=== PATIENT | male | born 1945 | race Caucasian/White ===

== ENCOUNTER 2017-12-23 10:06 | Outpatient (CLI) | payer MEDICARE ==
[~2017-12-23] VITALS: Ht 177.8 cm; Wt 87.7 kg
--- NOTE | ~2017-12-23 | OP ---
PATIENT NAME: HALEY ALBERTO MEDICAL RECORD: [id number] :47 LOCATION:D.CAT ADMISSION DATE: SURGEON: GAB SALGUERO MD DATE OF OPERATION: 12/23/2017 Transesophageal Note After general sedation via TIVA anesthesia, transesophageal Omniplane probe placed in the distal esophagus and proximal stomach without difficulty. FINDINGS: LVH is present. LV internal dimension is normal. Wall motion normal. EF is greater than 55%. The aortic valve is sclerotic; however, good valve excursion. No significant AI. Left atrium is mildly dilated. Mitral valve shows a probable ruptured chordae prolapsing into the left atrium with moderate to severe MR in an eccentric jet. Right-sided chamber size is grossly normal. Mild TR by color flow imaging. TRANSINT:[id number] Voice Confirmation ID: [id number] DOCUMENT ID: [id number] GAB SALGUERO MD at 1359 CC: [id number] DICTATION DATE: 12/23/17 1403 SENIOR SQL SERVER DEVELOPER: 12/23/17 1413 DEP CLI 12/23/17 [facility] [address] [place] [address]
--- NOTE | ~2017-12-23 | HEMODYNAMI ---
PATIENT:HALEY ALBERTO MEDICAL RECORD: [id number] : 47 LOCATION:[facility] ADMISSION DATE: 12/23/17 Generatedon:12/23/201713:56 Patient name: HALEY ALBERTO Patient #: [id number] : 1945 Date of study: 12/23/2017 Page: Of Hemodynamic Procedure Report Patient Data Patient Demographics Procedure consent was obtained First Name: HALEY Gender: Male Last Name: DOLLY : 1945 Middle Initial: R Age: 72 year(s) Patient #: [id number] Race: Ethnicity: or SSN: [id number] Additional ID: [id number] Contact details Address: [place] [address] State: [place] City: [place] Zip code: [address] Admission Admission Data Admission Date: 12/23/2017 Admission Time: 10:06 Arrival Date: 12/23/2017 Arrival Time: 13:00 Admit Source: Other Insurance Payor: Medicare Weight (lbs.): 205 Weight (kg.): 92.99 Procedure Procedure Types Cath Procedure Diagnostic Procedure LHC LHC w/Coronaries EMI Sedation Charges Moderate Sedation up to 30 minutes Procedure Description Procedure Date Procedure Date: 12/23/2017 Procedure Start Time: 13:44 Procedure End Time: 13:55 Procedure Staff Name Function Yves Mancilla MD Performing Physician Maxine Dejesus RT Monitor Dillon Schilling RN Nurse Geovanna Johansen RT Sdub Noe White MD Additional personnel Shaji Sweet Manager Corporate Responsibility Procedure Data Cath Procedure Fluoroscopy Diagnostic fluoroscopy Total fluoroscopy Time: 3.4 time: 3.4 min min Diagnostic fluoroscopy Total fluoroscopy dose: 145 dose: 145 mGy mGy Contrast Material Contrast Material Type Amount (ml) Isovue 300 44 Entry Location Entry Primary Successful Side Size Upsize Upsize Entry Closure Maldonado ccessful Closure Location (Fr) 1 (Fr) 2 (Fr) Remarks Device Remarks Radial Right 6 Fr Mechanical artery Short Compression Estimated blood loss: 5 ml Diagnostic catheters Device Type Used For End Catheter Placement DIAGNOSTIC [place] 110cm 5 Multi-vessel Fr catheter ([id number]) Angiography DIAGNOSTIC Pigtail 5Fr LV Angiography catheter ([id number]) Procedure Complications No complications Procedure Medications Medication Administration Route Dosage Oxygen etCO2 Nasal cannula 6 l/min Heparin Flush Bag added to field 2 bags (1000units/500ml NS) 0.9% NaCl I.V. 100 ml/hr Radial Cocktail added to field 1 syringe (Verapomil 2mg/Nitro 400mcg/Heparin 1500units) Refer to Anesthesia Notes for Sedation Medications Fentanyl I.V. 50 mcg Versed I.V. 1 mg Fentanyl I.V. 50 mcg Versed I.V. 1 mg Radial Cocktail I.A. 1 syringe (Verapomil 2mg/Nitro 400mcg/Heparin 1500units) Fentanyl I.V. 50 mcg Fentanyl I.V. 50 mcg Hemodynamics Rest Heart Rate: 72 (bpm) Pressure Samples Time Site Value (mmHg) Purpose Heart Use Rate(bpm) 13:52 LV 120/19,10 Snapshot 66 Gradients Valve Time Site Site Mean SEP/DFP Peak To Heart Use 1 2 (mmHg) (sec/min) Peak Rate (mmHg) (bpm) Aortic 13:53 LV AO 56 Snapshots Pre Cath Intra NCS Post Cath Vital Signs Time Heart Resp SPO2 etCO2 NIBP (mmHg) Rhythm Pain Sedation Rate (ipm) (%) (mmHg) Status Level (bpm) 13:15:30 63 17 100 32 162/74(105) NSR 0 (11) 10(A) , No pain 13:19:54 61 16 100 12 149/77(115) NSR 0 (11) 10(A) , No pain 13:29:23 54 17 100 27 130/92(107) NSR 0 (11) 9(A) , No pain 13:34:22 54 16 100 32.3 144/75(101) NSR 0 (11) 9(A) , No pain 13:45:14 50 16 100 31.5 135/60(97) NSR 0 (11) 9(A) , No pain 13:49:58 62 17 98 35.3 136/69(99) NSR 0 (11) 9(A) , No pain 13:54:00 59 16 98 36 127/73(96) NSR 0 (11) 9(A) , No pain Medications Time Medication Route Dose Verified Delivered Reason Notes Effectiveness by by 13:15:58 Oxygen etCO2 6 l/min Yves Carranza Nasal St Apollo Schilling RN cannula 13:16:09 Heparin Flush added 2 bags Yves Carranza used for Bag to St Apollo Schilling RN procedure (1000units/500ml field MORA NS) 13:16:21 0.9% NaCl I.V. 100 Yves Carranza Per ml/hr St Apollo Schilling RN physician 13:16:30 Radial Cocktail added 1 Yves Carranza used for (Verapomil to syringe St Apollo Schilling healthcare administrative assistant 2mg/Nitro field MORA 400mcg/Heparin 1500units) 13:16:39 Refer to Yves Carranza Per Anesthesia Notes St Apollo Schilling RN physician for Sedation MD Medications 13:44:16 Fentanyl I.V. 50 mcg Yves Carranza for sedation St Apollo Schilling RN, MD 13:44:25 Versed I.V. 1 mg Yves Carranza for sedation St Apollo Schilling RN, MD 13:46:52 Fentanyl I.V. 50 mcg Yves Carranza for sedation St Apollo Schilling RN, MD 13:46:57 Versed I.V. 1 mg Yves Carranza for sedation St Apollo Schilling RN, MD 13:47:05 Radial Cocktail I.A. 1 Yves Marinelli for (Verapomil syringe Ailey Laurent vasodilation 2mg/Nitro MD MORA 400mcg/Heparin 1500units) 13:49:01 Fentanyl I.V. 50 mcg Yves Carranza for sedation St Apollo Schilling RN, MD 13:51:21 Fentanyl I.V. 50 mcg Yves Carranza for sedation St Apollo Schilling RN, MD Procedure Log Time Note 12:43:51 Geovanna Johansen RT(R) sent for patient. Start room use. 12:53:19 Informed consent obtained and on chart 12:53:23 Diagnostic Cath Status : Elective 12:53:53 Time tracking: Regular hours (M-F 7:00 - 5:00) 12:53:57 Plan of Care:Hemodynamics will remain stable., Cardiac rhythm will remain stable., Comfort level will be maintained., Respiratory function will remain adequate., Patient/ family verbilizes understanding of procedure., Procedure tolerated without complication., Recovers from procedure without complications.. 12:54:34 Admit Source: Other 12:55:08 Patient Weight : 205 lbs 12:55:09 Arrival Date: 12/23/2017 1:00:00 PM 12:55:18 Insurance Payor : Medicare 12:59:56 Noe White MD present and monitoring patient for TIVA. 13:00:11 Shaji Sweet Tar Kettle Runner present for EMI. 13:00:20 Patient received from Pre/Post Procedure Room to CCL 3 Alert and oriented. Tansferred to table in Supine position. 13:00:21 Warm blankets applied, and king hugger turned on for patient comfort. 13:00:21 Correct patient and procedure confirmed by team. 13:00:22 ECG and BP/O2 sat monitors applied to patient. 13:04:52 Vital chart was started 13:04:53 Baseline sample Acquired. 13:04:58 Rhythm: sinus rhythm 13:05:02 Full Disclosure recording started 13:05:05 H&P Date Dictated: 12/23/2017 Within 30 days and on chart., H&P Addendum completed by physician on day of procedure. (MUST COMPLETE FOR ALL OUTPATIENTS). 13:05:07 Pre-procedure instructions explained to patient. 13:05:07 Pre-op teaching completed and patient verbalized understanding. 13:05:10 Family in waiting room. 13:05:11 Patient NPO since Midnight. 13:05:13 Is the patient allergic to Iodine/contrast media? No. 13:05:13 Was the patient premedicated? No 13:05:39 Is patient on blood thinner?No 13:05:40 Patient diabetic? No. 13:05:45 Previous problem with sedation/anesthesia? No ? 13:05:46 Snore? Yes 13:05:47 Sleep apnea? No 13:05:48 Deviated septum? No 13:05:49 Opens mouth fully? Yes 13:05:49 Sticks out tongue? Yes 13:05:51 Airway obstruction? No ? 13:05:54 Dentures? No ? 13:06:00 Pre procedure: right dorsailis pedis pulse 2+ Normal; easily identifiable; not easily obliterated 13:06:02 Pre procedure: left dorsailis pedis pulse 2+ Normal; easily identifiable; not easily obliterated 13:06:04 Patient pain scale 0/10 ?. 13:06:10 IV patent on arrival in left forearm with 0.9% NaCl at [facility]. 13:07:25 Baseline sample Acquired. 13:07:46 Baseline sample Acquired. 13:09:32 Lab results completed and on chart. 13:09:50 Right Radial & Right Groin area was prepped with chlora-prep and draped in sterile fashion 13:09:51 Alarms reviewed by R. N. 13:09:51 Sharps counted by scrub and verified by R.N. 13:11:11 Physician arrived 13::13 --------ALL STOP TIME OUT------ 13:11:14 Final Timeout: patient, procedure, and site verified with staff and physician. All members of the team are in agreement. 13:11:20 Right Radial & Right Groin site verified by team. 13:11:25 Physical assessment completed. ASA score P 2 - A patient with mild systemic disease as per Yves Mancilla MD. 13:11:35 Sedation plan: TIVA Medication:Versed, Fentanyl, Propofol 13:12:43 Procedure started. 13:14:16 EMI started. 13:15:58 Oxygen 6 l/min etCO2 Nasal cannula was administered by Dillon Schilling RN; ; 13:16:09 Heparin Flush Bag (1000units/500ml NS) 2 bags added to field was administered by Dillon Schilling RN; used for procedure; 13:16:21 0.9% NaCl 100 ml/hr I.V. was administered by Dlilon Schilling RN; Per physician; 13:16:30 Radial Cocktail (Verapomil 2mg/Nitro 400mcg/Heparin 1500units) 1 syringe added to field was administered by Dillon Schilling RN; used for procedure; 13:16:39 Refer to Anesthesia Notes for Sedation Medications was administered by Dillon Schilling RN; Per physician; 13:21:44 EMI completed. 13:22:51 Use device set Radial Dx or PCI 13:22:52 ACIST Syringe (57683) opened to sterile field. 13:22:53 Medline Cath Pack ([id number]) opened to sterile field. 13:22:53 Bag Decanter (2002) opened to sterile field. 13:22:54 DIAGNOSTIC WIRE .035 260cm J wire (804338) opened to sterile field. 13:22:55 ACIST Hand Control (71785) opened to sterile field. 13:22:55 ACIST Manifold (71479) opened to sterile field. 13:22:56 Tegaderm 4 x 4 (1626W) opened to sterile field. 13:22:57 MBrace Wrist Support ([id number]) opened to sterile field. 13:22:58 SHEATH 6Fr Prelude Radial ([id number]) opened to sterile field. 13:44:16 Fentanyl 50 mcg I.V. was administered by Dillon Schilling RN; for sedation; 13:44:25 Versed 1 mg I.V. was administered by Dillon Schilling RN; for sedation; 13:44:36 Local anesthetic to right radial artery with Lidocaine 2% by Yves Mancilla MD.INITIAL ACCESS ONLY 13:44:44 A 6 Fr Short sheath was inserted into the Right Radial artery 13:45:48 A DIAGNOSTIC [place] 110cm 5 Fr catheter (085039) was advanced over the wire and used for Multi-vessel Angiography. 13:46:52 Fentanyl 50 mcg I.V. was administered by Dillon Schilling RN; for sedation; 13:46:57 Versed 1 mg I.V. was administered by Dillon Schilling RN; for sedation; 13:47:05 Radial Cocktail (Verapomil 2mg/Nitro 400mcg/Heparin 1500units) 1 syringe I.A. was administered by Yves Mancilla MD; for vasodilation; 13:48:35 LCA angiography performed. 13:48:39 Injector settings: Ml/sec: 3, Volume: 6, 13:49:01 Fentanyl 50 mcg I.V. was administered by Dillon Schilling RN; for sedation; 13:49:20 RCA angiography performed. 13:49:26 Injector settings: Ml/sec: 3, Volume: 6, 13:50:07 Catheter removed. 13:50:20 A DIAGNOSTIC Pigtail 5Fr catheter ([id number]) was advanced over the wire and used for LV Angiography. 13:51:21 Fentanyl 50 mcg I.V. was administered by Dillon Schilling RN; for sedation; 13:52:46 LV hemodynamics recorded. 13:52:47 LV gram done using HERNANDEZ 13:52:50 Injector settings: Ml/sec: 5, Volume: 15, 13:53:50 EF : 55 % 13:53:57 Catheter removed. 13:53:59 TR BAND Standard ([id number]) opened to sterile field. 13:54:13 Sheath removed intact; hemostasis achieved with Mechanical Compression to the Right Radial artery. 13:54:22 Procedure ended.(Physican Out) 13:54:31 Fluoroscopy time 03.40 minutes. 13:54:37 Flurop Dose total: 145 13:54:37 Fluoroscopy dose: 145 mGy 13:54:41 Contrast amount:Isovue 300 44ml. 13:54:43 Sharps counted by scrub and verified by R.N. 13:54:45 TR band inflated with 10cc of air. 13:54:47 Insertion/operative site no bleeding no hematoma. 13:54:50 Post right radial artery:stable 13:54:52 Post Procedure Pulses reassessed and unchanged 13:54:54 Post procedure rhythm: unchanged. 13:54:57 Estimated blood loss: 5 ml 13:54:59 Post procedure instruction explained to patient.Patient verbalizes understanding. 13:54:59 Patient needs reinforcement of post procedure teaching. 13:55:27 Procedure type changed to Cath procedure, Diagnostic procedure, LHC, LHC w/Coronaries, EMI, Sedation Charges, Moderate Sedation up to 30 minutes 13:55:28 Procedure and supply charges have been captured, reviewed, submitted and are correct. 13:55:34 Procedure Complication : No complications 13:55:38 Vital chart was stopped 13:55:39 See physician's report for complete and final results. 13:55:41 Report given to Pre/Post Procedure Room. 13:55:43 Patient transfered to Pre/Post Procedure Room with Stretcher. 13:55:45 Procedure ended. 13:55:45 Full Disclosure recording stopped 13:55:55 End room use (Document Last) Device Usage Item Name Manufacture Quantity Catalog Number Hospital Part Current M inimal Lot# / Charge Number Stock Stock Serial# Code ACIST Syringe Acist 1 [id number] [id number] [id number] [id number] 2 0 (92749) Medical Systems Inc Medline Cath Cardinal 1 [id number] 143315 48669 459692 5 [employer] ([id number]) Bag Decanter Microtek 1 793416 78916 596616 5 () Medical Inc. DIAGNOSTIC WIRE St Flynn 1 382029 540898 895987 052783 3 0 .035 260cm J wire (468868) ACIST Hand Acist 1 25105 671324 342331 866569 5 Control (24696) Medical Systems Inc ACIST Manifold Acist 1 31197 784601 066406 845750 5 (79056) Medical Systems Inc Tegaderm 4 x 4 3M 1 1626W 233911 124394 125582 5 (1626W) MBrace Wrist Advanced 1 140-0250-00 721879 65377 019531 5 Support Vascular ([id number]) Dynamics SHEATH 6Fr Merit 1 [id number] 302886 196623 268536 5 Prelude Radial Medical ([id number]) DIAGNOSTIC Terumo 1 40-9391 127962 480741 626172 5 [place] 110cm 5 Fr catheter (121628) DIAGNOSTIC Cardinal 1 [id number] 557106 991725 042653 5 Pigtail 5Fr Health catheter ([id number]) TR BAND Terumo 1 [id number] 942733 246636 204970 4 0 Standard ([id number]) Signature Audit [place] Stage Time Signature Unsigned Intra-Procedure 12/23/2017 Maxine Dejesus 1:56:53 PM RT(R) Signatures Monitor : Maxine Dejesus RT Signature : Date : Time : [id number] [place] [address]
--- NOTE | ~2017-12-23 | OP ---
PATIENT NAME: HALEY ALBERTO MEDICAL RECORD: [id number] :47 LOCATION:D.CAT ADMISSION DATE: SURGEON: GAB SALGUERO MD DATE OF OPERATION: 12/23/2017 PROCEDURE: Left heart catheterization, selective coronary angiography, right radial approach. CATHETERS: [place] catheter, radial sheath. The procedure was well tolerated. The patient was returned to phillips, sheath removed and a TR band placed. FINDINGS: Left ventriculography in 30-degree HERNANDEZ view: LV appears to be normal, wall motion normal. EF 50% to 55%. There is 2 to 3+ mitral regurgitation. CORONARY ANATOMY: LEFT MAIN: Left main is free of disease. LAD: Shows mild wall disease with no flow obstructive stenosis. CIRCUMFLEX: Multivessel, free of disease. RIGHT CORONARY ARTERY: Free of disease. IMPRESSION: A 2 to 3+ mitral regurgitation with ruptured chordae via transesophageal dictated previously. We referred to CV surgery for mitral valve repair. TRANSINT:[id number] Voice Confirmation ID: [id number] DOCUMENT ID: [id number] GAB SALGUERO MD at 1359 CC: [id number] DICTATION DATE: 12/23/17 1405 SLIDE ATTENDANT: 12/23/17 1415 DEP CLI 12/23/17 [facility] [address] [place] [address]
[2017-12-23] MEDS ORDERED: PRAVASTATIN SOD10 MG PO (10:34)
[2017-12-23] MEDS ORDERED: DIOVAN HCT 80-11 TAB PO (10:34)
[2017-12-23] MEDS ORDERED: HYDROCODONE-APA1 TAB PO (10:35)
[2017-12-23] MEDS ORDERED: ZOLOFT50 MG PO (10:36)
[2017-12-23] MEDS ORDERED: XANAX1 MG PO (10:36)
[2017-12-23] MEDS ORDERED: OMEPRAZOLE40 MG PO (10:36)
[2017-12-23] MEDS ORDERED: REGLAN5 MG PO (10:37)
[2017-12-23 10:47] VITALS: BP 160/72; BMI 27.7
[2017-12-23 11:00] LABS: BASOPHILS 0.6 % (0-2); EOSINOPHILS 2.1 % (0-7); HEMATOCRIT 40.4 % (42.0-54.0); HEMOGLOBIN 13.6 g/dL (13.5-17.5); IMMATURE GRANULOCYTES 0.2 % (0-5); LYMPHOCYTES 26.7 % (15-50); MCH 29.2 pg (26.0-34.0); MCHC 33.7 g/dL (31.0-37.0); MCV 86.9 fL (80.0-100.0); MEAN PLATELET VOLUME 8.7 fL (7.4-10.4); MONOCYTES 9.4 % (2-11); PLATELET COUNT 197 10x3/uL (130-400); RBC 4.65 10x6/uL (4.20-6.10); RDW 14.2 % (11.5-14.5)
[2017-12-23 11:08] LABS: ANION GAP 12.2 mmol/L (8-16); CALCIUM 9.1 mg/dL (8.5-10.1); CREATININE - SERUM 1.3 mg/dL (0.6-1.3); POTASSIUM - SERUM 4.2 mmol/L (3.5-5.1)
[2017-12-24 16:25] VITALS: Ht 177.8 cm; Wt 87.7 kg
== END 2017-12-23 16:20 | disposition home or self-care (01) ==
LOC: D.CATH 10:06
PROVIDERS: Internal Medicine Cardiovascular Disease
DX: I51.7 Cardiomegaly (principal); I70.0 Atherosclerosis of aorta; I34.1 Nonrheumatic mitral (valve) prolapse; I34.0 Nonrheumatic mitral (valve) insufficiency; I07.1 Rheumatic tricuspid insufficiency; Z01.812 Encounter for preprocedural laboratory examination

== ENCOUNTER 2017-12-30 05:00 | Inpatient (IN) | payer MEDICARE ==
[2017-12-25 13:37] LABS: BASOPHILS 0.5 % (0-2); EOSINOPHILS 1.8 % (0-7); HEMATOCRIT 38.9 % (42.0-54.0); IMMATURE GRANULOCYTES 0.2 % (0-5); LYMPHOCYTES 26.8 % (15-50); MCH 29.1 pg (26.0-34.0); MCHC 33.4 g/dL (31.0-37.0); MEAN PLATELET VOLUME 8.7 fL (7.4-10.4); NEUTROPHILS 60.7 % (40-80); PLATELET COUNT 202 10x3/uL (130-400); RBC 4.47 10x6/uL (4.20-6.10); RDW 14.2 % (11.5-14.5); WBC 6.5 10x3/uL (4.8-10.8)
[2017-12-25 13:44] LABS: APPEARANCE CLEAR (CLEAR); BACTERIA FEW /hpf (NONE SEEN); BILIRUBIN NEGATIVE (NEGATIVE); COLOR YELLOW (YELLOW); EPITHELIAL CELLS OCC /hpf (0-5); GLUCOSE NEGATIVE (NEGATIVE); KETONE NEGATIVE (NEGATIVE); MUCUS <1+ /lpf (NONE SEEN); NITRITE NEGATIVE (NEGATIVE); PROTEIN NEGATIVE (NEGATIVE); RED CELLS - URINE 0-5 /hpf (0-5); SPECIFIC GRAVITY 1.025 (1.005-1.020); UROBILINOGEN NORMAL (NORMAL); WHITE CELLS - URINE RARE /hpf (0-5)
[2017-12-25 14:00] LABS: INR 1.03 (0.85-1.17); PROTIME 13.1 SECONDS (11.6-15.0)
[2017-12-25 14:01] LABS: APTT 31.7 SECONDS (22.8-39.4)
[2017-12-25 14:13] LABS: ALBUMIN 3.9 g/dL (3.4-5.0); ANION GAP 12.1 mmol/L (8-16); BILIRUBIN - TOTAL 0.42 mg/dL (0.2-1.3); CALCIUM 9.1 mg/dL (8.5-10.1); CARBON DIOXIDE 29.6 mmol/L (21.0-32.0); CREATININE - SERUM 1.2 mg/dL (0.6-1.3); PHOSPHOROUS 4.1 mg/dL (2.5-4.9); POTASSIUM - SERUM 3.7 mmol/L (3.5-5.1); PROTEIN - SERUM 7.6 g/dL (6.4-8.2); T4 THYROXIN - FREE 0.73 ng/dL (0.76-1.46); THYROID STIMULATING HORMONE 2.08 uIU/mL (0.36-3.74); URIC ACID 5.5 mg/dL (2.6-7.2)
[2017-12-30] VITALS (46 sets, daily range): BP systolic 97–158; BP diastolic 51–75; BMI 27.3
[~2017-12-30] VITALS: Ht 177.8 cm; Wt 85.9 kg
--- NOTE | ~2017-12-30 | OP ---
PATIENT NAME: HALEY ALBERTO MEDICAL RECORD: [id number] :47 LOCATION:D.[facility] D.CV04 ADMISSION DATE:12/30/17 SURGEON: AVERY SINGH MD DATE OF OPERATION: 12/30/2017 SURGEON: Avery Singh MD FRETTED INSTRUMENTS INSPECTOR: LYLE Hardin OPERATIONS PERFORMED: 1. Mitral valve repair with quadrangular resection of central scallop posterior leaflet and localized annuloplasty. 2. Insertion of St. Flynn 32-mm annuloplasty ring. 3. Coronary artery bypass graft times one (reverse saphenous vein graft from aorta to diagonal vessel). PREOPERATIVE DIAGNOSES: Mitral regurgitation with ruptured chordae and coronary artery disease. POSTOPERATIVE DIAGNOSES: Mitral regurgitation with ruptured chordae and coronary artery disease. ANESTHESIA: General endotracheal anesthesia. ESTIMATED BLOOD LOSS: Total cardiopulmonary bypass with Cell Saver retransfusion. SPECIMENS: Central scallop posterior mitral valve. COMPLICATIONS: None. CONDITION: Stable. DISPOSITION: ICU. OPERATIVE FINDINGS: 1. Transesophageal echocardiography was a moderately difficult window, but visualization of the mitral valve confirmed the previous findings of ruptured chordae from the central portion of the posterior leaflet with mitral regurgitation, not as severe appearing under general anesthesia even with systolic pressure of 120. Good ventricular contractility. No tricuspid regurgitation noted and normal aortic valve. 2. There was significant calcification involving the left anterior descending and the diagonal. The diagonal was a 1.5-mm vessel with posterior plaque, moderate disease. 3. Ruptured primary cord from the free edge of the central scallop of the posterior leaflet, excised in a quadrangular fashion with localized pledgeted annuloplasty of the posterior portion of the mitral valve annulus and reapproximation of the posterior mitral valve leaflets. 4. A 32-mm St. Flynn annuloplasty ring resulting in very mild mitral regurgitation intraoperatively. 5. Separation from cardiopulmonary bypass with no vasopressors. Transesophageal echocardiography confirmed no mitral regurgitation and no mitral stenosis. OPERATIVE REPORT [id number] HALEY ALBERTO OPERATIVE INDICATION: Mitral regurgitation with ruptured chordae. OPERATIVE SUMMARY IN DETAIL: The patient was brought to the operating suite. General anesthesia was obtained. The patient was prepped and draped. Later, the [place] was able to be floated with the chest open. A portion of greater saphenous vein starting at the ankle and extending up to the mid calf was removed. Side branch was clipped. Vessel removed proximally and distally and ligated. The leg was later closed in 2 layers. Median sternotomy incision was made. Subcutaneous tissue was divided by electrocautery. Sternum was divided with a saw. Pericardium was opened. Heparin was given. The patient was cannulated with bicaval cannulation. The patient was placed on cardiopulmonary bypass. Site for distal anastomosis was selected. The patient was cooled. Antegrade cardioplegia vent was placed. Retrograde cardioplegia cannula was placed. Crossclamp was placed. Cardioplegia given antegrade and retrograde and this was repeated at 15- to 20-minute intervals during the crossclamp time. Distal anastomoses were performed in standard technique. Atriotomy was performed after dissecting the interatrial groove. The valve was visualized with findings as noted above. Quadrangular resection was successful. Valve leaflets were carefully reapproximated. The annuloplasty ring was sutured in with interrupted annular sutures and carefully lowered into place. The valve was checked. The patient was rewarmed. Atriotomy was closed. Single proximal anastomosis was performed. Left ventricular apex was de-aired. Crossclamp was removed. The patient resumed spontaneous rhythm. Atrial and ventricular pacing wires were placed. Once the patient was fully rewarmed, the patient was weaned off cardiopulmonary bypass and was stable. The patient was decannulated. Cannula sites were oversewn. Protamine was given. Graft lay appropriately. Hemostasis was ensured. Drains were placed in the mediastinum. Pericardial valve was loosely reapproximated. Sternum was closed with wires. Fascia was closed. Subcutaneous tissue was closed. Skin was closed. Dermabond was placed. Needle and sponge counts were reported as correct and the patient was taken to the ICU in stable condition. TRANSINT:[id number] Voice Confirmation ID: [id number] DOCUMENT ID: [id number] AVERY SINGH MD at 0751 CC: PRETTY SILVA M.D. [id number] DICTATION DATE: 12/30/171754 INFORMATION SECURITY ENGINEER: 12/30/17 1858 ADM IN [address] [place] [address]
--- NOTE | ~2017-12-30 | TEE ---
PATIENT:HALEY ALBERTO MEDICAL RECORD: [id number] LOCATION:[place] [address] AGE OF PATIENT: 72 ADMISSION DATE: 12/30/17 SEX: M REFERRING PHYSICIAN: INTERPRETING PHYSICIAN: SHAQUILLE STEWART MD TRANSESOPHAGEAL ECHOCARDIOGRAM Date: 12/30/17 EMI CHARGE Y INDICATIONS: CABG/MVR (REPAIR) PREMEDICATIONS: PATIENT'S RESPONSE PROCEDURE DOPPLER MEASUREMENTS: LVIT LA PA RA LVOT RVOT Asc. Ao AV Gradient Peak AV Mean AV Area MV Gradient Peak MV Mean MV Area INTERPRETATION: LVd: 4.0 cm LVs: 2.5 cm Doppler: 2-D: COLOR FLOW DOPPLER NORMAL SALINE STUDY: MISCELLANOUS: DIAGNOSIS: PLAN: Electricity Trading Analyst:Jaden [place] Auditor: Kim EMMANUEL COMMENTS: DATE OF SERVICE: PROCEDURE: Transesophageal echo evaluation of valvular structures during bypass surgery and mitral valve repair. FINDINGS: 1. Left ventricular chamber size is within normal limits. Left ventricular systolic function is normal. Overall ejection fraction estimated at 55%. 2. Left atrium, right atrium, and right ventricle chamber sizes are within TRANSESOPHAGEAL ECHOCARDIOGRAM REPORT [id number] HALEY ALBERTO normal limits. 3. Valvular structures have normal structure and motion. 4. Doppler interrogation reveals moderate to severe mitral regurgitation. This is not a new finding. The patient is scheduled for mitral valve repair. The remaining valvular structures have normal structure and motion and no other valvular insufficiency or stenosis is present. 5. No evidence of pericardial effusion or left ventricular thrombus. TRANSINT:[id number] Voice Confirmation ID: [id number] DOCUMENT ID: [id number] at 0847 CC: [id number] DICTATION DATE: 12/31/17 1251 STUDENT SUCCESS ADVISOR: 12/31/17 1259 ADM IN [address] [place] [address]
--- NOTE | ~2017-12-30 | CN ---
PATIENT NAME:HALEY ALBERTO MEDICAL RECORD: [id number] : 47 LOCATION:[facility] ADMIT DATE: 12/30/17 ACCOUNT: [id number] CONSULTING PHYSICIAN: SHAQUILLE STEWART MD REFERRING PHYSICIAN: CHAVA SINGH MD DATE OF CONSULTATION: 01/01/2018 ADMITTING DIAGNOSES: 1. Symptomatic mitral regurgitation. 2. Status post mitral valve repair with ring annuloplasty and posterior leaflet resection. 3. Coronary artery disease. 4. Status post coronary bypass graft surgery, saphenous vein graft to LAD diagonal. 5. Hypertension. 6. Hyperlipidemia. HISTORY OF PRESENT ILLNESS: Mr. Alberto is postop day #2, doing well status post coronary bypass graft surgery times 1 and mitral valve repair for mitral regurgitation. He has remained in sinus rhythm in the 60s. His blood pressure has been in the 100-120 range systolic. PHYSICAL EXAMINATION: GENERAL APPEARANCE: Well-nourished, well-developed, appears stated age. Level of distress, comfortable. PSYCHIATRIC: Mental status, alert, normal affect. Orientation, oriented to time, place and person. EYES: Lids and conjunctiva, noninjected. No discharge, no pallor. ENT: Lips, teeth, gums, normal dentition. Oropharynx, no cyanosis, no pallor. NECK: Carotid arteries, bilateral normal upstroke, no bruits, no thrills. JUGULAR VEINS: No jugular venous pressure or distention. CERVICAL LYMPH NODES: Nontender, nonenlarged. THYROID: Not enlarged. Nontender. No nodules. LUNGS: Respiratory effort, unlabored. CHEST: Normal curvature. No thoracic deformity. No chest wall tenderness. Percussion, resonant. Auscultation, clear. No wheezes, no rales, no rhonchi. CARDIOVASCULAR: Precordial exam, nondisplaced. No heaves or pericardial thrills. Rate and rhythm, regular. Heart sounds, normal S1, normal S2. No S3, no gallop, no rub. Systolic murmur, not heard. Diastolic murmur, not heard. EXTREMITIES: No cyanosis, no edema. Peripheral pulses, full and equal in all extremities, except as noted. No bruits appreciated. ABDOMEN: Soft, nondistended. Normal aorta. No bruit. Nontender. No masses. Liver, nontender, no hepatomegaly. Spleen, nontender, no splenomegaly. MUSCULOSKELETAL: No joint tenderness. No joint swelling. No erythema. NEUROLOGICAL: Normal gait, normal strength, normal tone. SKIN: Warm and dry. OVERALL IMPRESSION: Stable cardiac postop day #2 from mitral valve repair as well as coronary bypass graft surgery. TRANSINT:[id number] Voice Confirmation ID: [id number] DOCUMENT ID: [id number] CONSULT REPORT [id number] HALEY ALBERTO JEFFREY MD at 1403 CC: [id number] DICTATION DATE: 01/01/18 1237 [employer]S PRO: 01/01/18 1248 DIS IN 01/07/18 [facility] [address] [place] [address]
[~2017-12-30 05:00] MED LIST: DIOVAN HCT 80-11 TAB PO; HYDROCODONE-APA1 TAB PO; OMEPRAZOLE40 MG PO; PRAVASTATIN SOD10 MG PO; REGLAN5 MG PO; XANAX1 MG PO; ZOLOFT50 MG PO
[2017-12-30 12:34] LABS: HEMATOCRIT 35.1 % (42.0-54.0); HEMOGLOBIN 11.6 g/dL (13.5-17.5); MCH 28.5 pg (26.0-34.0); MCV 86.2 fL (80.0-100.0); MEAN PLATELET VOLUME 8.4 fL (7.4-10.4); RBC 4.07 10x6/uL (4.20-6.10); RDW 14.2 % (11.5-14.5); WBC 13.1 10x3/uL (4.8-10.8)
[2017-12-30 12:45] LABS: CALC OSMOLALITY 293 mosm/kg (275-300); CALCIUM 7.5 mg/dL (8.5-10.1); CARBON DIOXIDE 24.5 mmol/L (21.0-32.0); CHLORIDE - SERUM 109 mmol/L (98-107); POTASSIUM - SERUM 4.9 mmol/L (3.5-5.1); SODIUM 145 mmol/L (136-145); UREA NITROGEN 17 mg/dL (7-18); eGFR NON AFRICAN AMERICAN 78 mL/min (90-120)
[2017-12-30 12:48] LABS: GLUCOSE 154 mg/dL (74-106)
[2017-12-30 12:57] LABS: APTT 31.7 SECONDS (22.8-39.4); INR 1.48 (0.85-1.17); PROTIME 17.4 SECONDS (11.6-15.0)
[2017-12-31] VITALS (44 sets, daily range): BP systolic 86–147; BP diastolic 40–58; Ht 177.8 cm; Wt 85.9 kg
[2017-12-31 05:54] LABS: HEMATOCRIT 32.3 % (42.0-54.0); HEMOGLOBIN 10.5 g/dL (13.5-17.5); MCH 28.2 pg (26.0-34.0); MCHC 32.5 g/dL (31.0-37.0); MCV 86.8 fL (80.0-100.0); MEAN PLATELET VOLUME 8.9 fL (7.4-10.4); RBC 3.72 10x6/uL (4.20-6.10); RDW 14.7 % (11.5-14.5); WBC 14.1 10x3/uL (4.8-10.8)
[2017-12-31 06:20] LABS: ALBUMIN 2.6 g/dL (3.4-5.0); BILIRUBIN - TOTAL 0.55 mg/dL (0.2-1.3); CALCIUM 7.8 mg/dL (8.5-10.1); CARBON DIOXIDE 25.4 mmol/L (21.0-32.0); POTASSIUM - SERUM 4.4 mmol/L (3.5-5.1)
[2017-12-31 06:21] LABS: CREATININE - SERUM 1.4 mg/dL (0.6-1.3)
[2018-01-01] VITALS (26 sets, daily range): BP systolic 95–125; BP diastolic 41–65
[2018-01-01 04:49] LABS: HEMATOCRIT 26.3 % (42.0-54.0); HEMOGLOBIN 8.6 g/dL (13.5-17.5); MCH 28.2 pg (26.0-34.0); MCHC 32.7 g/dL (31.0-37.0); MCV 86.2 fL (80.0-100.0); MEAN PLATELET VOLUME 8.9 fL (7.4-10.4); RBC 3.05 10x6/uL (4.20-6.10); RDW 14.7 % (11.5-14.5); WBC 12.2 10x3/uL (4.8-10.8)
[2018-01-01 05:25] LABS: ALBUMIN 2.4 g/dL (3.4-5.0); BILIRUBIN - TOTAL 0.5 mg/dL (0.2-1.3); CALCIUM 7.4 mg/dL (8.5-10.1); CARBON DIOXIDE 26.1 mmol/L (21.0-32.0); CREATININE - SERUM 1.1 mg/dL (0.6-1.3)
[2018-01-01 05:27] LABS: ANION GAP 10.6 mmol/L (8-16); POTASSIUM - SERUM 3.7 mmol/L (3.5-5.1)
[2018-01-02] VITALS (33 sets, daily range): BP systolic 103–148; BP diastolic 39–91
[2018-01-02 05:07] LABS: HEMATOCRIT 23.5 % (42.0-54.0); HEMOGLOBIN 7.8 g/dL (13.5-17.5); MCH 28.5 pg (26.0-34.0); MCHC 33.2 g/dL (31.0-37.0); MCV 85.8 fL (80.0-100.0); MEAN PLATELET VOLUME 9.4 fL (7.4-10.4); RBC 2.74 10x6/uL (4.20-6.10); RDW 14.8 % (11.5-14.5)
[2018-01-02 05:37] LABS: ALBUMIN 2.2 g/dL (3.4-5.0); ALKALINE PHOSPHATASE 31 U/L (46-116); ALT (SGPT) 12 U/L (10-68); BILIRUBIN - TOTAL 0.59 mg/dL (0.2-1.3); CALC OSMOLALITY 273 mosm/kg (275-300); CALCIUM 7.6 mg/dL (8.5-10.1); CARBON DIOXIDE 23.9 mmol/L (21.0-32.0); CHLORIDE - SERUM 102 mmol/L (98-107); GLUCOSE 100 mg/dL (74-106); POTASSIUM - SERUM 3.8 mmol/L (3.5-5.1); PROTEIN - SERUM 5.2 g/dL (6.4-8.2); SODIUM 136 mmol/L (136-145); UREA NITROGEN 18 mg/dL (7-18); eGFR NON AFRICAN AMERICAN 78 mL/min (90-120)
[2018-01-03] VITALS (30 sets, daily range): BP systolic 123–170; BP diastolic 51–74
[2018-01-03 05:09] LABS: HEMATOCRIT 23.9 % (42.0-54.0); HEMOGLOBIN 7.8 g/dL (13.5-17.5); MCH 28.2 pg (26.0-34.0); MCHC 32.6 g/dL (31.0-37.0); MCV 86.3 fL (80.0-100.0); MEAN PLATELET VOLUME 9.1 fL (7.4-10.4); RBC 2.77 10x6/uL (4.20-6.10); RDW 14.6 % (11.5-14.5); WBC 8.3 10x3/uL (4.8-10.8)
[2018-01-03 05:43] LABS: ALBUMIN 2.3 g/dL (3.4-5.0); ANION GAP 18.5 mmol/L (8-16); BILIRUBIN - TOTAL 0.68 mg/dL (0.2-1.3); CALCIUM 7.7 mg/dL (8.5-10.1); CARBON DIOXIDE 22.4 mmol/L (21.0-32.0); CREATININE - SERUM 1.1 mg/dL (0.6-1.3); POTASSIUM - SERUM 3.9 mmol/L (3.5-5.1); PROTEIN - SERUM 5.6 g/dL (6.4-8.2)
[2018-01-04] VITALS (45 sets, daily range): BP systolic 115–154; BP diastolic 55–77
[2018-01-04 06:06] LABS: HEMATOCRIT 27.4 % (42.0-54.0); HEMOGLOBIN 8.9 g/dL (13.5-17.5); MCH 27.7 pg (26.0-34.0); MCHC 32.5 g/dL (31.0-37.0); MCV 85.4 fL (80.0-100.0); MEAN PLATELET VOLUME 8.9 fL (7.4-10.4); RBC 3.21 10x6/uL (4.20-6.10); RDW 14.7 % (11.5-14.5); WBC 9.1 10x3/uL (4.8-10.8)
[2018-01-04 06:39] LABS: ALBUMIN 2.4 g/dL (3.4-5.0); ALKALINE PHOSPHATASE 44 U/L (46-116); CALC OSMOLALITY 268 mosm/kg (275-300); CALCIUM 7.8 mg/dL (8.5-10.1); CARBON DIOXIDE 22.1 mmol/L (21.0-32.0); CHLORIDE - SERUM 99 mmol/L (98-107); GLUCOSE 98 mg/dL (74-106); PROTEIN - SERUM 5.8 g/dL (6.4-8.2); SODIUM 134 mmol/L (136-145); UREA NITROGEN 16 mg/dL (7-18); eGFR NON AFRICAN AMERICAN 78 mL/min (90-120)
[2018-01-04 07:00] LABS: ALT (SGPT) 30 U/L (10-68)
[2018-01-05] VITALS (24 sets, daily range): BP systolic 93–129; BP diastolic 42–68
[2018-01-05 06:21] LABS: HEMATOCRIT 30.9 % (42.0-54.0); MCH 27.8 pg (26.0-34.0); MCHC 32.4 g/dL (31.0-37.0); MCV 85.8 fL (80.0-100.0); MEAN PLATELET VOLUME 8.8 fL (7.4-10.4); RBC 3.6 10x6/uL (4.20-6.10); RDW 14.9 % (11.5-14.5); WBC 9.9 10x3/uL (4.8-10.8)
[2018-01-05 06:51] LABS: ANION GAP 17.9 mmol/L (8-16); CALCIUM 8.3 mg/dL (8.5-10.1); CARBON DIOXIDE 21.5 mmol/L (21.0-32.0); CREATININE - SERUM 1.2 mg/dL (0.6-1.3); POTASSIUM - SERUM 4.4 mmol/L (3.5-5.1)
[2018-01-06] VITALS (24 sets, daily range): BP systolic 103–137; BP diastolic 49–84
[2018-01-06 06:21] LABS: HEMATOCRIT 31.6 % (42.0-54.0); HEMOGLOBIN 10.1 g/dL (13.5-17.5); MCH 27.5 pg (26.0-34.0); MCV 86.1 fL (80.0-100.0); MEAN PLATELET VOLUME 9.1 fL (7.4-10.4); RBC 3.67 10x6/uL (4.20-6.10); RDW 15.1 % (11.5-14.5)
[2018-01-06 06:33] LABS: ANION GAP 15.6 mmol/L (8-16); CALCIUM 8.4 mg/dL (8.5-10.1); CARBON DIOXIDE 22.7 mmol/L (21.0-32.0); CREATININE - SERUM 1.2 mg/dL (0.6-1.3); POTASSIUM - SERUM 4.3 mmol/L (3.5-5.1)
[2018-01-07] VITALS (15 sets, daily range): BP systolic 91–132; BP diastolic 48–97
[2018-01-07 06:21] LABS: HEMOGLOBIN 9.7 g/dL (13.5-17.5); MCH 27.7 pg (26.0-34.0); MCHC 32.3 g/dL (31.0-37.0); MCV 85.7 fL (80.0-100.0); MEAN PLATELET VOLUME 8.7 fL (7.4-10.4); RBC 3.5 10x6/uL (4.20-6.10); RDW 15.1 % (11.5-14.5); WBC 10.3 10x3/uL (4.8-10.8)
[2018-01-07 06:33] LABS: ANION GAP 17.5 mmol/L (8-16); CALCIUM 8.9 mg/dL (8.5-10.1); CREATININE - SERUM 1.2 mg/dL (0.6-1.3); POTASSIUM - SERUM 4.5 mmol/L (3.5-5.1)
[2018-01-07] MEDS ORDERED: ELIQUIS2.5 MG PO (13:54)
[2018-01-07] MEDS ORDERED: CORDARONE200 MG PO ×2 (13:54→14:02)
[2018-01-07] MEDS ORDERED: XANAX0.25 MG PO (13:55)
[2018-01-07] MEDS ORDERED: ACETAMINOPHEN500 M1 PO (13:55)
[2018-01-07] MEDS ORDERED: ASPIRIN81 MG PO (13:56)
[2018-01-07] MEDS ORDERED: LASIX40 MG PO (13:56)
[2018-01-07] MEDS ORDERED: K-DUR20 MEQ PO (13:57)
[2018-01-07] MEDS ORDERED: COLACE100 MG PO (13:57)
== END 2018-01-07 17:52 | DRG 219 ==
LOC: D.SDCHOLD 05:00 → D.CVICU 05:00 → D.SDCHOLD 07:30 → D.CVICU 12:15
PROVIDERS: Internal Medicine Cardiovascular Disease; Thoracic Surgery (Cardiothoracic Vascular Surgery)
PROC: 021009W Bypass Coronary Artery, One Artery from Aorta with Autologous Venous Tissue, Open Approach (ICD-10-PCS; 2017-12-30)
PROC: 02UG08Z Supplement Mitral Valve with Zooplastic Tissue, Open Approach (ICD-10-PCS; principal; 2017-12-30 07:30)
PROC: 02BG0ZZ Excision of Mitral Valve, Open Approach (ICD-10-PCS; 2017-12-30 07:30)
DX: I34.0 Nonrheumatic mitral (valve) insufficiency (principal); I51.1 Rupture of chordae tendineae, not elsewhere classified; F05 Delirium due to known physiological condition; D62 Acute posthemorrhagic anemia; J98.11 Atelectasis; G72.81 Critical illness myopathy; I25.10 Atherosclerotic heart disease of native coronary artery without angina pectoris; I48.0 Paroxysmal atrial fibrillation

== ENCOUNTER 2018-01-07 18:11 | Inpatient (IN) | payer MEDICARE ==
[~2018-01-07] VITALS: Ht 177.8 cm; Wt 78.9 kg
--- NOTE | ~2018-01-07 | RHP ---
PATIENT: HALEY ALBERTO MEDICAL RECORD: [id number] ACCOUNT: [id number] LOCATION:[id number] : 47 ADMISSION DATE: 01/07/18 REHABILITATION HISTORY AND PHYSICAL EXAMINATION POST ADMISSION PHYSICIAN EXAMINATION POST-ADMISSION PHYSICAL EXAMINATION AND HISTORY AND PHYSICAL DATE OF ADMISSION: 01/07/2018 ADMITTING DIAGNOSIS: Critical illness myopathy. HISTORY OF PRESENT ILLNESS: The patient is a gentleman, who presents secondary to critical illness myopathy. He is a 72-year-old gentleman with history of coronary artery disease and angioplasty with stent placement and hypertension. He began having symptomatic mitral regurg, was seen by the cardiovascular surgeon for the symptoms. [facility] and underwent coronary artery bypass grafting, saphenous vein graft to his left anterior diagonal. Mitral valve repair with ring annuloplasty and posterior leaflet resection on 12/30. He had some postop complications of increased distal weakness, proximal weakness with difficulty rising from bed to chair, dizziness and lightheadedness, acute postop blood loss anemia, paroxysmal atrial fib, left pleural effusion. He was completely independent with mobility and ADLs prior to this. He is currently set up with mod assist to his ADLs and mod assist to his mobility. He lives alone, but he has son and [id number]. They plan to move in with him during his recuperation. After this surgery and when he was discharged home, he is going to return home hopefully at his prior level of functioning. Comorbidities include paroxysmal atrial fib, left pleural effusion, left basilar atelectasis, acute mitral insufficiency, acute occlusive coronary artery disease, acute critical illness myopathy, delirium, symptomatic mitral regurg, left anterior diagonal saphenous vein graft, hypertension, and hyperlipidemia. PAST MEDICAL HISTORY: Significant for hypertension, coronary artery disease, acid reflux, anxiety, depression, hyperlipidemia. PAST SURGICAL HISTORY: Includes bilateral knees, angioplasty with stent placement. ALLERGIES: No known drug allergies. CURRENT MEDICATIONS: Include amiodarone 200 mg b.i.d., Lasix 40 mg daily, he is on a tapering dose. Aspirin 81 mg daily. He is on potassium 20 mEq b.i.d. He is on Protonix 40 mg b.i.d., Colace 100 mg b.i.d., Eliquis 2.5 mg b.i.d., Xanax 0.25 mg every 8 hours p.r.n., and Tylenol as needed. HABITS: No current alcohol or tobacco use. FAMILY HISTORY: Noncontributory. SOCIAL HISTORY: The patient hopes to return back home and get back to his prior level of functioning. REVIEW OF SYSTEMS: GENERAL: Does complain of some weakness. HISTORY AND PHYSICAL [id number] HALEY ALBERTO PSYCHIATRIC: Denies cold, cough, or congestion. CARDIOVASCULAR: Denies chest pain. PHYSICAL EXAMINATION: VITAL SIGNS: Stable, afebrile. GENERAL: A well-developed gentleman, in no acute distress, alert upon exam. HEENT: Normocephalic and atraumatic. Mucosa moist. NECK: Supple. No lymphadenopathy. LUNGS: Clear at this time, though he does have some decreased breath sounds in his left base. HEART: Has a regular rate and rhythm. ABDOMEN: Benign. EXTREMITIES: No clubbing, cyanosis, or edema. NEUROLOGIC: He seems intact. LABORATORY DATA: His white count is 8.7, H&H of 9.4 and 29.3, and platelet count 353. His sodium is 134, potassium 4.3, BUN and creatinine of 19 and 1.3, and blood sugar is noted to be 114. ASSESSMENT: This 72-year-old gentleman admitted to the rehab with a working diagnosis of critical illness myopathy. The patient has potential to make improvement. We will institute the following multidisciplinary therapies including, but not limited to physical, occupational, respiratory, speech, nutritional services, prosthetics and orthotics. Given his complex medical condition and risks for more complications, rehabilitation services cannot be provided at a low level of care such as a residential facility. PLAN: 1. Admit to [facility] for intensive inpatient therapy to include the following disciplines: A. Physical therapy to improve gait, all transfer skills and bed mobility to a modified independent level. B. Occupational therapy to improve activities of daily living to a modified independent level. C. Case management to assist with discharge planning and placement options. D. Nutrition to assist with nutritional needs. E. Rehabilitation nursing to assist in monitoring the patient's underlying medical conditions and to assist with any type of bowel or bladder management. 2. The patient's current medications and medical care will be continued. 3. The patient will be placed on standard fall precautions. 4. The patient's estimated length of stay is approximately 7-10 days. 5. We will discuss this patient during care team staff meeting this week and we will appreciate cardiovascular surgeon seeing this patient. TRANSINT:[id number] Voice Confirmation ID: [id number] DOCUMENT ID: [id number] LORI notes whether there has been none or any medical/functional change since admission: - No change since the PAS LORI attests patient continues to be appropriate for IRF: - Remains appropriate for the IRF HISTORY AND PHYSICAL [id number] HALEY ALBERTO SCOTT MD at 1405 CC: [id number] DICTATION DATE: 01/08/18 1151 COLOR TELEVISION CONSOLE MONITOR: 01/08/18 1225 ADM IN [facility] [address] [place] [place] [id number]
[~2018-01-07 18:11] MED LIST changes: +ACETAMINOPHEN500 M1 PO; +ASPIRIN81 MG PO; +COLACE100 MG PO; +CORDARONE200 MG PO; +ELIQUIS2.5 MG PO; +K-DUR20 MEQ PO; +LASIX40 MG PO; +XANAX0.25 MG PO
[2018-01-07 19:16] VITALS: BP 117/54
[2018-01-07 20:08] VITALS: BP 117/54; BMI 26.0
[2018-01-08 04:26] LABS: BASOPHILS 0.3 % (0-2); EOSINOPHILS 2.1 % (0-7); HEMATOCRIT 29.3 % (42.0-54.0); HEMOGLOBIN 9.4 g/dL (13.5-17.5); IMMATURE GRANULOCYTES 1.3 % (0-5); MCH 27.7 pg (26.0-34.0); MCHC 32.1 g/dL (31.0-37.0); MCV 86.4 fL (80.0-100.0); MEAN PLATELET VOLUME 8.7 fL (7.4-10.4); MONOCYTES 10.6 % (2-11); NEUTROPHILS 74.7 % (40-80); PLATELET COUNT 353 10x3/uL (130-400); RBC 3.39 10x6/uL (4.20-6.10); RDW 15.1 % (11.5-14.5); WBC 8.7 10x3/uL (4.8-10.8)
[2018-01-08 04:42] LABS: CALCIUM 8.6 mg/dL (8.5-10.1); CARBON DIOXIDE 24.3 mmol/L (21.0-32.0); CREATININE - SERUM 1.3 mg/dL (0.6-1.3); POTASSIUM - SERUM 4.3 mmol/L (3.5-5.1)
[2018-01-08 08:48] VITALS: BP 109/60
[2018-01-08 10:34] VITALS: Ht 177.8 cm; Wt 78.9 kg
[2018-01-08 19:00] VITALS: BP 116/55
[2018-01-09 06:09] LABS: MCH 27.5 pg (26.0-34.0); MCHC 32.1 g/dL (31.0-37.0); MCV 85.6 fL (80.0-100.0); MEAN PLATELET VOLUME 8.7 fL (7.4-10.4); RBC 3.27 10x6/uL (4.20-6.10); RDW 14.9 % (11.5-14.5); WBC 8.1 10x3/uL (4.8-10.8)
[2018-01-09 06:25] LABS: ANION GAP 15.8 mmol/L (8-16); CALCIUM 8.2 mg/dL (8.5-10.1); CARBON DIOXIDE 23.6 mmol/L (21.0-32.0); CREATININE - SERUM 1.4 mg/dL (0.6-1.3); POTASSIUM - SERUM 4.4 mmol/L (3.5-5.1)
[2018-01-09 08:19] VITALS: BP 116/63
[2018-01-09 20:32] VITALS: BP 113/58
[2018-01-10 08:00] VITALS: BP 110/57
[2018-01-10 20:20] VITALS: BP 107/55
[2018-01-11 05:44] LABS: BASOPHILS 0.3 % (0-2); EOSINOPHILS 2.6 % (0-7); HEMATOCRIT 29.9 % (42.0-54.0); HEMOGLOBIN 9.7 g/dL (13.5-17.5); IMMATURE GRANULOCYTES 0.8 % (0-5); LYMPHOCYTES 11.5 % (15-50); MCH 27.6 pg (26.0-34.0); MCHC 32.4 g/dL (31.0-37.0); MCV 85.2 fL (80.0-100.0); MEAN PLATELET VOLUME 8.5 fL (7.4-10.4); MONOCYTES 10.5 % (2-11); NEUTROPHILS 74.3 % (40-80); PLATELET COUNT 424 10x3/uL (130-400); RBC 3.51 10x6/uL (4.20-6.10); RDW 14.9 % (11.5-14.5); WBC 9.6 10x3/uL (4.8-10.8)
[2018-01-11 05:57] LABS: ANION GAP 15.4 mmol/L (8-16); CALCIUM 8.7 mg/dL (8.5-10.1); CARBON DIOXIDE 23.7 mmol/L (21.0-32.0); CREATININE - SERUM 1.4 mg/dL (0.6-1.3); POTASSIUM - SERUM 4.1 mmol/L (3.5-5.1)
[2018-01-11 08:34] VITALS: BP 111/62
[2018-01-11 19:00] VITALS: BP 121/60
[2018-01-12 06:27] LABS: BASOPHILS 0.3 % (0-2); EOSINOPHILS 2.3 % (0-7); HEMATOCRIT 33.6 % (42.0-54.0); HEMOGLOBIN 10.9 g/dL (13.5-17.5); IMMATURE GRANULOCYTES 0.9 % (0-5); LYMPHOCYTES 13.3 % (15-50); MCH 27.7 pg (26.0-34.0); MCHC 32.4 g/dL (31.0-37.0); MCV 85.3 fL (80.0-100.0); MEAN PLATELET VOLUME 8.5 fL (7.4-10.4); MONOCYTES 9.6 % (2-11); NEUTROPHILS 73.6 % (40-80); RBC 3.94 10x6/uL (4.20-6.10); RDW 14.9 % (11.5-14.5); WBC 11.9 10x3/uL (4.8-10.8)
[2018-01-12 06:28] LABS: PLATELET COUNT 523 10x3/uL (130-400)
[2018-01-12 06:55] LABS: ANION GAP 17.8 mmol/L (8-16); CALCIUM 8.9 mg/dL (8.5-10.1); CARBON DIOXIDE 23.1 mmol/L (21.0-32.0); CREATININE - SERUM 1.7 mg/dL (0.6-1.3); POTASSIUM - SERUM 3.9 mmol/L (3.5-5.1)
[2018-01-12 08:00] VITALS: BP 127/60
[2018-01-12 19:00] VITALS: BP 117/59
[2018-01-13 08:00] VITALS: BP 105/62
[2018-01-13 08:33] VITALS: BP 133/63
[2018-01-13 19:00] VITALS: BP 118/58
[2018-01-14 08:00] VITALS: BP 110/55
[2018-01-14 19:00] VITALS: BP 119/52
[2018-01-15 06:25] LABS: BASOPHILS 0.7 % (0-2); EOSINOPHILS 2.9 % (0-7); HEMATOCRIT 31.4 % (42.0-54.0); HEMOGLOBIN 9.9 g/dL (13.5-17.5); IMMATURE GRANULOCYTES 0.7 % (0-5); LYMPHOCYTES 16.5 % (15-50); MCH 27.2 pg (26.0-34.0); MCHC 31.5 g/dL (31.0-37.0); MCV 86.3 fL (80.0-100.0); MEAN PLATELET VOLUME 8.1 fL (7.4-10.4); MONOCYTES 10.1 % (2-11); NEUTROPHILS 69.1 % (40-80); RBC 3.64 10x6/uL (4.20-6.10); WBC 7.3 10x3/uL (4.8-10.8)
[2018-01-15 06:35] LABS: PLATELET COUNT 409 10x3/uL (130-400)
[2018-01-15 06:39] LABS: ANION GAP 10.2 mmol/L (8-16); CALCIUM 9.1 mg/dL (8.5-10.1); CARBON DIOXIDE 29.2 mmol/L (21.0-32.0); CREATININE - SERUM 1.4 mg/dL (0.6-1.3); POTASSIUM - SERUM 4.4 mmol/L (3.5-5.1)
[2018-01-15 08:27] VITALS: BP 111/55
== END 2018-01-15 13:15 | disposition home or self-care (01) | DRG 92 ==
LOC: D.REHAB 18:11
PROVIDERS: Emergency Medicine
DX: G72.81 Critical illness myopathy (principal); J90 Pleural effusion, not elsewhere classified; J98.11 Atelectasis; I48.0 Paroxysmal atrial fibrillation; Z79.01 Long term (current) use of anticoagulants; Z95.1 Presence of aortocoronary bypass graft; I10 Essential (primary) hypertension; E78.5 Hyperlipidemia, unspecified; I34.0 Nonrheumatic mitral (valve) insufficiency; R41.0 Disorientation, unspecified